=== PATIENT | male | born 1955 | race Caucasian/White ===

== ENCOUNTER 2022-12-26 08:30 | Outpatient (CLI) | payer MEDICARE, BC, SELFPAY | END 2022-12-26 08:31 | disposition home or self-care (01) | PROVIDERS: PCP Family Medicine; Visit Provider Family Medicine | DX: E55.9 Vitamin D deficiency, unspecified (principal); E78.5 Hyperlipidemia, unspecified; Z12.5 Encounter for screening for malignant neoplasm of prostate; Z83.3 Family history of diabetes mellitus | CPT/HCPCS: 80048; 80061; 84153 ==

== ENCOUNTER 2024-01-28 01:24 | Emergency (ER) | payer MEDICARE, OTHER, SELFPAY ==
[2024-01-28] VITALS (7 sets, daily range): BP systolic 135–147; BP diastolic 78–79; PULSE 77–93; RESP 16; TEMP 36.7; O2SAT 93–97; BMI 23.1
--- NOTE | 2024-01-28 01:29 | ED.GENADULT ---
HPI - General Adult General Time Seen by Provider: 01:29 Date Seen: 01/28/24 Chief complaint: Shortness of Breath/Dyspnea Stated complaint: Short of breath, syncopal 0030 Time Seen by Provider: 01/28/24 01:28 Source: patient, RN notes reviewed and old records reviewed Mode of arrival: ambulatory Limitations: no limitations History of Present Illness HPI narrative: 68-year-old male who presents today with shortness of breath and lightheadedness. Patient reports two episodes of becoming short of breath, and passing out. Once was when he was on the toilet, sent limp became very short of breath and lightheaded, diaphoretic, and passed out. No associated chest pain, palpitations. Was unable to get sleep due to some nausea and so wanted some water, again had an episode of feeling suddenly short of breath, lightheaded, diaphoretic, and passed out. He fell and hit his chin as well as the right-sided chest. Denies diarrhea, denies abdominal pain, still has little nausea now. Related Data Home Medications ?Medication ?Instructions ?Recorded ?Confirmed aspirin 81 mg tablet,delayed 81 mg PO QDAY 12/26/22 05/30/23 release (Adult Aspirin Regimen) Allergies Allergy/AdvReac Type Severity Reaction Status Date / Time No Known Drug Allergies Allergy Verified 05/30/23 13:44 PFSH PFS Surgical History History of vasectomy (~09/14/08) ?Z98.52 - Vasectomy status (ICD-10) Family History Other ASCVD (arteriosclerotic cardiovascular disease) Colon cancer Thoracic aortic aneurysm Social History What is your current living situation?: I presently have a place to live Problems where you live: no known problems In the past 12 months, utilities in danger of being shut off: no In the past 12 mos, have been you worried that your food would run out before you had money to buy more?: never true In the past 12 mos, the food you bought just didn't last and you didn't have money to buy more?: never true How often does anyone, including family, friends and others, physically hurt you: never How often does anyone, including family, friends and others, insult or talk down to you: never How often does anyone, including family, friends and others, threaten you with harm: never How often does anyone, including family, friends and others, scream or curse at you: sometimes Health Related Social Needs: Other personal risk factors, not elsewhere classified (Z91.89) Exam Narrative: Exam Narrative: General: Well-developed and well-nourished, no acute distress Head: Atraumatic and normocephalic Eyes: Pupils are equal reactive, extraocular motions intact, conjunctiva clear ENT: External nose and ears are normal, posterior pharynx without erythema or exudate. Superficial abrasion of the lower lip Neck: No midline cervical tenderness, full spontaneous range of motion the neck, trachea midline, no adenopathy Heart: Regular rate and rhythm no murmurs or thrills Lungs: Clear to auscultation bilaterally without wheezes or crackles. Contusion of the right chest. Abdomen: Soft, nontender, nondistended with active bowel sounds Musculoskeletal: No tenderness, deformity, or edema Neurologic: Awake, alert, and oriented x3, no gross focal neurologic deficits, cranial nerves intact as tested Psych: Mood and affect are appropriate Skin: No rashes Const: Vital Signs, click to edit/add: Vital Signs - 24 hr 01/28/24 01:39 Temperature 98.0 F Pulse Rate [Left P ulse Oximeter] 93 Respiratory Rate 16 Blood Pressure [Ri ght Upper Arm] 147/79 H Pulse Oximetry 97 Oxygen Delivery Me thod Room Air Course Course ED Course: Patient seen examined, reviewed most recent orthopedic office visit from June 2019 form patient was seen with osteoarthritis the left knee. Patient presents today with abrupt onset shortness of breath followed by lightheadedness and syncopal episode. Does have a small abrasion of the lower lip as well as contusion of the chest wall pain denies chest pain or palpitations prior to these events. On exam here, vital is stable. EKG is reassuring. Patient's related sequence of sudden shortness of breath, diaphoresis follow-up by syncopal episode is concerning for possible dysrhythmia, acute coronary syndrome, or pulmonary embolism. Labs and CT PE study ordered. Discussed with patient that even if workup is negative would likely recommend admission for further cardiac evaluation. EKG independently interpreted by me performed at 1:51 a.m. demonstrates normal sinus rhythm rate 86, no acute ST elevations or depressions, normal intervals, normal axis, QTC 437, AL 200, no prior for comparison. Reevaluation(s) Time of Reevaluation #1: 03:19 Reevaluation #1: CT scan of the head and panel interpreted by me negative for acute findings. Labs and panel interpreted by me with normal white blood cell count, normal hemoglobin, normal basic panel other than mild hyperglycemia, normal lactate, negative troponin, BNP 66, respiratory panel negative. CT PE study independently interpreted by in me without acute findings. No definite etiology for patient's symptoms found today. With abrupt onset of dyspnea and syncope, concern for possible acute cardiac etiology. Plan for admission. Time of Reevaluation #2: 03:45 Reevaluation #2: Patient recheck, discussed findings on evaluation so far including normal head CT, normal CT PE study, negative troponin, normal respiratory panel. Discussed recommendation for admission due to recurrent syncopal episodes with should preceding shortness of breath and no definite etiology. Discussed my concern for possible dysrhythmia, acute coronary syndrome, or other emergent condition. Patient would prefer to go home and have outpatient follow-up. Discussed risks of this inpatient again declines admission. Vital Signs Vital signs: Initial Vital Signs Temperature 98.0 F 01/28/24 01:39 Temperature Source Temporal Artery Scan 01/28/24 01:39 Pulse Rate 93 01/28/24 01:39 Pulse Rhythm Regular 01/28/24 01:39 Respiratory Rate 16 01/28/24 01:39 Blood Pressure 147/79 H 01/28/24 01:39 Blood Pressure Mean 101 01/28/24 01:39 Blood Pressure Position Sitting 01/28/24 01:39 Pulse Oximetry 97 01/28/24 01:39 Oxygen Delivery Method Room Air 01/28/24 01:39 Vital Signs Temperature 98.0 F 01/28/24 01:39 Pulse Rate 93 01/28/24 01:39 Respiratory Rate 16 01/28/24 01:39 Blood Pressure 147/79 H 01/28/24 01:39 Pulse Oximetry 97 01/28/24 01:39 Oxygen Delivery Method Room Air 01/28/24 01:39 Temperature 98.0 F 01/28/24 01:39 Pulse Rate 93 01/28/24 01:39 Respiratory Rate 16 01/28/24 01:39 Blood Pressure 147/79 H 01/28/24 01:39 Pulse Oximetry 97 01/28/24 01:39 Oxygen Delivery Method Room Air 01/28/24 01:39 Medical Decision Making Lab Data Labs: Lab Results 01/28/24 Range/Units 01:55 WBC 7.37 (4.50-11.00) K/uL RBC 5.02 (4.30-5.90) m/uL Hgb 14.6 (13.5-17.5) gm/dL Hct 43.7 (37.0-53.0) % MCV 87 (80-100) fL MCH 29 (26-34) pg MCHC 33 (32-36) gm/dL RDW Coeff of Ashleigh 12.4 (11.5-15.5) % Plt Count 222 (140-440) K/uL Neut % (Auto) 84.6 H (42.0-72.0) % Lymph % (Auto) 6.9 L (20-44) % Cooke % (Auto) 7.2 (0.0-11.0) % Eos % (Auto) 0.8 (0.0-7.0) % Baso % (Auto) 0.4 (0.0-3.0) % Neut # (Auto) 6.20 (1.7-7.0) K/uL Lymph # (Auto) 0.50 L (0.90-2.90) K/uL Cooke # (Auto) 0.50 (0.00-0.90) K/UL Eos # (Auto) 0.06 (0.00-0.50) K/uL Baso # (Auto) 0.03 (0.00-0.30) K/uL Abs Immat Gran (auto) 0.01 (0.00-0.30) K/uL Imm/Tot Granulo (auto) 0.1 % Sodium 135 (135-149) mmol/L Potassium 4.2 (3.6-5.1) mmol/L Chloride 101 (96-114) mmol/L Carbon Dioxide 27 (20-32) mmol/L Anion Gap 7 (7-15) mEq/L BUN 20 (7-30) mg/dL Creatinine 0.9 (0.5-1.5) mg/dL Estimated Creat Clear 76.04 Estimated GFR 92 ml/min Glucose 189 H (60-115) mg/dL Lactate 1.4 (0.5-1.9) mmol/L Calcium 9.4 (8.4-10.6) mg/dL Magnesium 2.2 (1.5-2.6) mg/dL Troponin I < 0.01 L (0.01-0.04) ng/mL NT-Pro-B Natriuret Pep 66 pg/mL SARS-CoV-2 (PCR) Negative SARS-CoV-2 (Negative) Influenza Type A (PCR) Negative PCR FLU A (Negative) Influenza Type B (PCR) Negative PCR FLU B (Negative) RSV (PCR) Negative PCR RSV (Negative) Discharge Plan Discharge Clinical Impression: Syncope, Abrasion of lip, Acute dyspnea Patient Disposition: Home, Self-Care Condition: Stable Instructions: Syncope (ED), Dyspnea (ED) Additional Instructions: Your emergency department provider recommended admission to the hospital which of declined. Follow-up with your primary care doctor as soon as possible for further evaluation. Please return to the emergency department any time if your symptoms return or get worse. Activity Level: Activity as Tolerated Discharge Diet: Regular Prescriptions: No Action aspirin [Adult Aspirin Regimen] 81 mg tablet,delayed release (DR/EC) 81 mg PO QDAY Follow Up/Referrals: Lino Blackmon MD [Primary Care Provider] - Stand Alone Forms: [email or web address] Info Instructions
--- NOTE | 2024-01-28 01:52 | CRLHL7_ITS ---
For Patients: As a result of the Century Cures Act, medical imaging exams and procedure reports are released immediately into your electronic medical record. You may view this report before your referring provider. If you have questions, please contact your health care provider. INDICATION: Dyspnea, syncope. TECHNIQUE: CT chest PE was acquired with 95 cc Isovue 370 IV contrast. COMPARISON: CT chest 03/05/2017. FINDINGS: Heart and vasculature: Contrast opacification of the pulmonary arterial tree is adequate. No sign of pulmonary embolism. Heart size is normal. Thoracic aorta and pulmonary artery are normal in caliber. Lungs and pleura: Dependent and bibasilar atelectasis. No suspicious nodules or infiltrates. No pleural effusions, pleural thickening, or pneumothorax. Lymph nodes/mediastinum: No mediastinal, hilar, or axillary adenopathy. Thyroid gland is unremarkable. Chest wall: No masses. Upper abdomen: No acute findings. Bones: Unremarkable for age. IMPRESSION: No evidence of pulmonary embolism or acute pulmonary process. Please note that all CT scans at this facility use dose modulation, iterative reconstruction, and/or weight-based dosing when appropriate to reduce radiation dose to as low as reasonably achievable. Dictated by Flaquito Abraham MD @ 01/28/2024 3:26:20 AM (Electronically Signed)
--- NOTE | 2024-01-28 01:52 | CRLHL7_ITS ---
For Patients: As a result of the Century Cures Act, medical imaging exams and procedure reports are released immediately into your electronic medical record. You may view this report before your referring provider. If you have questions, please contact your health care provider. INDICATION: Syncope, fall. TECHNIQUE: CT head without contrast. COMPARISON: None. FINDINGS: CSF spaces: Within normal limits for age. Brain parenchyma: The tuttle-white differentiation is maintained. No sign of mass, hemorrhage, or midline shift. Skull base and calvarium: The visualized paranasal sinuses and mastoid air cells demonstrate no acute or significant findings. The visualized orbits are grossly unremarkable. No skull fractures. IMPRESSION: No acute intracranial abnormality. Please note that all CT scans at this facility use dose modulation, iterative reconstruction, and/or weight-based dosing when appropriate to reduce radiation dose to as low as reasonably achievable. Dictated by Flaquito Abraham MD @ 01/28/2024 3:22:30 AM (Electronically Signed)
[2024-01-28 02:03] LABS: Lactate* 1.4 mmol/L (0.5-1.9)
[2024-01-28 02:04] LABS: Basophils Absolute Auto 0.03 K/uL (0.00-0.30); Basophils Percent Auto 0.4 % (0.0-3.0); Eosinophils Absolute Auto 0.06 K/uL (0.00-0.50); Eosinophils Percent Auto 0.8 % (0.0-7.0); Hematocrit 43.7 % (37.0-53.0); Hemoglobin* 14.6 gm/dL (13.5-17.5); Immature Granulocytes Abs Auto 0.01 K/uL (0.00-0.30); Immature Granulocytes Pct Auto 0.1 %; Lymphocytes Percent Auto 6.9 % (20-44); Mean Corpuscular HGB Conc 33 gm/dL (32-36); Mean Corpuscular Hemoglobin 29 pg (26-34); Mean Corpuscular Volume 87 fL (80-100); Monocytes Percent Auto 7.2 % (0.0-11.0); Neutrophils Percent Auto 84.6 % (42.0-72.0); Platelet Count* 222 K/uL (140-440); RDW Coefficient of Variation % 12.4 % (11.5-15.5); Red Blood Count 5.02 m/uL (4.30-5.90); White Blood Count* 7.37 K/uL (4.50-11.00)
[2024-01-28 02:07] LABS: Slide Review Reflex No
[2024-01-28 02:23] LABS: Chloride* 101 mmol/L (96-114); Potassium* 4.2 mmol/L (3.6-5.1); Sodium* 135 mmol/L (135-149)
[2024-01-28 02:26] LABS: Anion Gap 7 mEq/L (7-15); Blood Urea Nitrogen* 20 mg/dL (7-30); Calcium* 9.4 mg/dL (8.4-10.6); Carbon Dioxide* 27 mmol/L (20-32); Creatinine* 0.9 mg/dL (0.5-1.5); Est. Creatinine Clearance* 76.04; Estimated Glomerular Filt Rate 92 ml/min; Glucose* 189 mg/dL (60-115)
[2024-01-28 02:27] LABS: Magnesium* 2.2 mg/dL (1.5-2.6)
[2024-01-28 02:36] LABS: NT Pro B Type NatriureticPept* 66 pg/mL
[2024-01-28 02:40] LABS: PCR FLU A Negative PCR FLU A (Negative); PCR FLU B Negative PCR FLU B (Negative); PCR RSV Negative PCR RSV (Negative); SARS PCR* Negative SARS-CoV-2 (Negative)
[2024-01-28 02:43] LABS: Troponin I* < 0.01 ng/mL (0.01-0.04)
== END 2024-01-28 03:57 | disposition home or self-care (01) ==
PROVIDERS: Emergency Provider Family Medicine; PCP Family Medicine
DX: R55 Syncope and collapse (principal); S00.511A Abrasion of lip, initial encounter; R06.00 Dyspnea, unspecified; W18.39XA Other fall on same level, initial encounter
CPT/HCPCS: 36415; 70450; 71275; 80048; 83605; 83735; 83880; 84484; 85025; 87631; 93005; 99284; 99285; Q9967

== ENCOUNTER 2024-05-20 13:14 | Emergency (ER) | payer MEDICARE, OTHER, SELFPAY ==
--- OUTSIDE RECORDS SUMMARY | 2024-05-20 13:17 | XMS_ITS | Clinical Summary ---
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
--- OUTSIDE RECORDS SUMMARY | 2024-05-20 13:17 | XMS_ITS | Clinical Summary ---
Author Organization [facility] Address [address] [place] [id number] Care Team Providers Care Spray Worker Name Role Phone Sam Blackmon MD Primary Care Provider Kerwin Bonilla MD Unavailable Unava ilable Kerwin Bonilla MD Unavailable Unava ilable Allergies No known active allergies Medications aspirin (ASA) 81 MG chewable tablet 10/04/1999 Active Encounters Date Type Department Care Team Description 03/18/2024 7:16 AM SPACE ENGINEER - 03/18/2024 11:59 PM SPACE ENGINEER Hospital Encounter [facility] [address] [place] [phone] Kerwin Bonilla MD Syncope and collapse Discharge Disposition: Home or Self Care 03/18/2024 Travel from Last 3 Months Family History Medical History Relation Comments Aortic dissection Brother Myocardial Infarction Brother Aortic dissection Father Myocardial Infarction Father Aortic dissection Nephew Myocardial Infarction Nephew Relation Status Comments Brother Father Nephew Social History Tobacco Use Types Packs/Day Years Used Date Smoking Tobacco: Never Smokeless Tobacco: Never Tobacco Cessation:Counseling Given: Not Answered Alcohol Use Standard Drinks/Week Comments Yes 0 (1 standard drink = 0.6 oz pur e alcohol) Maybe once or twice a month PHQ-2 Answer Date Recorded PHQ-2 Score 0 02/05/2024 Sex and Gender Information Value Date Recorded Sex Assigned at Not on file Legal Sex Male 3:34 AM SPACE ENGINEER Gender Identity Not on file Sexual Orientation Not on file Last Filed Vital Signs Vital Sign Reading Time Taken Comments Blood Pressure 144/80 02/05/2024 9:10 AM SPACE ENGINEER Pulse 78 02/05/2024 9:10 AM SPACE ENGINEER Temperature 36.8 C (98.2 F) 01/28/2024 11:19 AM SPACE ENGINEER Respiratory Rate 20 01/28/2024 5:57 PM SPACE ENGINEER Oxygen Saturation 99% 02/05/2024 9:10 AM SPACE ENGINEER Inhaled Oxygen Concentration - - Weight 77.5 kg (170 lb 14.4 oz) 02/05/2024 9:10 AM SPACE ENGINEER Height 182.9 cm (6') 02/05/2024 9:10 AM SPACE ENGINEER Body Mass Index 23.18 02/05/2024 9:10 AM SPACE ENGINEER Plan of Treatment Health Maintenance Due Date Last Done Comments ADVANCE CARE PLANNING 1955 ANNUAL REVIEW OF HM ORDERS 1955 CT COLONOGRAPHY 1955 FIT 1955 FLEX SIG 1955 sDNA (Cologuard) 1955 COLONOSCOPY 02/23/1964 COLORECTAL CANCER SCREENING 02/23/1964 HEPATITIS C SCREENING 02/23/1972 LIPID 1994 ZOSTER IMMUNIZATION (1 of 2) 02/23/2004 FALL RISK ASSESSMENT 2019 MEDICARE ANNUAL WELLNESS VISIT 2019 Pneumococcal Vaccine: 50+ Years (2 of 2 - PCV) 04/02/2020 04/02/2019 COVID-19 Vaccine ( - season) 2023 03/17/2021, 06/29/2020, 06/08/2020 INFLUENZA VACCINE (#1) 2023 3, 04/02/2019, 01/03/2010, Additional history exists PHQ-2 (once per calendar year) 2024 02/05/2024 DIABETES SCREENING 01/27/2027 01/28/2024 RSV VACCINE (1 - 1-dose 75+ series) 2029 DTAP/TDAP/TD IMMUNIZATION (3 - Td or Tdap) 04/02/2029 04/02/2019, 10/27/2008 HPV IMMUNIZATION Aged Out No longer e ligible based on patient's age to complete this topic MENINGITIS IMMUNIZATION Aged Out No l onger eligible based on patient's age to complete this topic Procedures Procedure Name Priority Date/Time Associated Diagnosis Comments ECHO COMPLETE Routine 03/18/2024 7:51 AM SPACE ENGINEER Syncope and collapse BASIC METABOLIC PANEL STAT 01/28/2024 1:51 PM SPACE ENGINEER from Last 3 Months or Most Recently Relevant to Health Maintenance Results * ECHO COMPLETE (03/18/2024 7:51 AM SPACE ENGINEER) LVEF 55-60% CARDIOLOGY RESULTS Anatomical Region Laterality Modality Echocardiography 03/18/2024 7:24 AM SPACE ENGINEER Narrative 03/18/2024 8:34 AM SPACE ENGINEER [id number]^NEW^KERWIN^JAY [facility] Echocardiography Laboratory [address] [place] [address] Name: AMO JARRETT : 1955 Study Date: 03/18/2024 07:24 AM Age: 69 yrs Gender: Male Patient Location: [facility] Reason For Study: Syncope and collapse Ordering Physician: KERWIN BONILLA Referring Physician: KERWIN BONILLA Performed By: Zeb Garrison RDCS BSA: 2.0 m2 Height: 71 in Weight: 170 lb HR: 70 Procedure Echocardiogram with two-dimensional, color and spectral Doppler. Interpretation Summary Left ventricular systolic function is normal. The visual ejection fraction is 55-60%. No regional wall motion abnormalities noted. There is mild (1+) aortic regurgitation. There is mild (1+) mitral regurgitation. The study was technically adequate. There is no comparison study available. Left Ventricle The left ventricle is normal in size. There is normal left ventricular wall thickness. Left ventricular systolic function is normal. The visual ejection fraction is 55-60%. Left ventricular diastolic function is normal. No regional wall motion abnormalities noted. Right Ventricle The right ventricle is normal size. The right ventricular systolic function is normal. Atria Normal left atrial size. Right atrial size is normal. Mitral Valve The mitral valve leaflets are mildly thickened. There is mild (1+) mitral regurgitation. Tricuspid Valve There is trace to mild tricuspid regurgitation. The right ventricular systolic pressure is approximated at 15.6 mmHg plus the right atrial pressure. IVC diameter <2.1 cm collapsing >50% with sniff suggests a normal RA pressure of 3 mmHg. Aortic Valve There is mild trileaflet aortic sclerosis. There is mild (1+) aortic regurgitation. No aortic stenosis is present. Pulmonic Valve The pulmonic valve is not well seen, but is grossly normal. Vessels The aortic root is normal size. Pericardium There is no pericardial effusion. Rhythm Sinus rhythm was noted. MMode/2D Measurements & Calculations IVSd: 0.99 cm LVIDd: 5.0 cm LVIDs: 2.6 cm LVPWd: 0.91 cm IVC diam: 2.1 cm FS: 49.2 % LV mass(C)d: 172.0 grams LV mass(C)dI: 87.4 grams/m2 Ao root diam: 3.6 cm asc Aorta Diam: 3.9 cm LVOT diam: 2.3 cm LVOT area: 4.2 cm2 Ao root diam index Ht(cm/m): 2.0 Ao root diam index BSA (cm/m2): 1.8 Asc Ao diam index BSA (cm/m2): 2.0 Asc Ao diam index Ht(cm/m): 2.1 LA Volume (BP): 47.0 ml LA Volume Index (BP): 23.9 ml/m2 RWT: 0.36 TAPSE: 2.8 cm Time Measurements Aortic HR: 68.0 BPM Doppler Measurements & Calculations MV E max iker: 51.3 cm/sec MV A max iker: 53.8 cm/sec MV E/A: 0.95 MV max P.1 mmHg MV mean P.1 mmHg MV V2 VTI: 17.4 cm MVA(VTI): 4.0 cm2 MV dec time: 0.23 sec LV V1 max P.9 mmHg LV V1 max: 85.4 cm/sec LV V1 VTI: 16.8 cm CO(LVOT): 4.8 l/min CI(LVOT): 2.4 l/min/m2 SV(LVOT): 70.0 ml SI(LVOT): 35.5 ml/m2 PA acc time: 0.13 sec TR max iker: 197.3 cm/sec TR max P.6 mmHg E/E' av.2 Lateral E/e': 4.9 Medial E/e': 5.5 RV S Iker: 12.6 cm/sec Report approved by: Jono Elizabeth MD on 03/18/2024 08:34 AM Procedure Note Jono Elizabeth MD - 03/18/2024 [id number]^NEW^KERWIN^JAY [facility] Echocardiography Laboratory [address] [facility] [place] [address] Name: MAO JARRETT : 1955 Study Date: 03/18/2024 07:24 AM Age: 69 yrs Gender: Male Patient Location: [facility] Reason For Study: Syncope and collapse Ordering Physician: KERWIN BONILLA Referring Physician: KERWIN BONILLA Performed By: Zeb Garrison RDCS BSA: 2.0 m2 Height: 71 in Weight: 170 lb HR: 70 Procedure Echocardiogram with two-dimensional, color and spectral Doppler. Interpretation Summary Left ventricular systolic function is normal. The visual ejection fraction is 55-60%. No regional wall motion abnormalities noted. There is mild (1+) aortic regurgitation. There is mild (1+) mitral regurgitation. The study was technically adequate. There is no comparison studyavailable. Left Ventricle The left ventricle is normal in size. There is normal left ventricularwall thickness. Left ventricular systolic function is normal. The visualejection fraction is 55-60%. Left ventricular diastolic function is normal. Noregional wall motion abnormalities noted. Right Ventricle The right ventricle is normal size. The right ventricular systolicfunction is normal. Atria Normal left atrial size. Right atrial size is normal. Mitral Valve The mitral valve leaflets are mildly thickened. There is mild (1+)mitral regurgitation. Tricuspid Valve There is trace to mild tricuspid regurgitation. The right ventricularsystolic pressure is approximated at 15.6 mmHg plus the right atrial pressure.IVC diameter <2.1 cm collapsing >50% with sniff suggests a normal RA pressureof 3 mmHg. Aortic Valve There is mild trileaflet aortic sclerosis. There is mild (1+) aortic regurgitation. No aortic stenosis is present. Pulmonic Valve The pulmonic valve is not well seen, but is grossly normal. Vessels The aortic root is normal size. Pericardium There is no pericardial effusion. Rhythm Sinus rhythm was noted. MMode/2D Measurements & Calculations IVSd: 0.99 cm LVIDd: 5.0 cm LVIDs: 2.6 cm LVPWd: 0.91 cm IVC diam: 2.1 cm FS: 49.2 % LV mass(C)d: 172.0 grams LV mass(C)dI: 87.4 grams/m2 Ao root diam: 3.6 cm asc Aorta Diam: 3.9 cm LVOT diam: 2.3 cm LVOT area: 4.2 cm2 Ao root diam index Ht(cm/m): 2.0 Ao root diam index BSA (cm/m2): 1.8 Asc Ao diam index BSA (cm/m2): 2.0 Asc Ao diam index Ht(cm/m): 2.1 LA Volume (BP): 47.0 ml LA Volume Index (BP): 23.9 ml/m2 RWT: 0.36 TAPSE: 2.8 cm Time Measurements Aortic HR: 68.0 BPM Doppler Measurements & Calculations MV E max iker: 51.3 cm/sec MV A max iker: 53.8 cm/sec MV E/A: 0.95 MV max P.1 mmHg MV mean P.1 mmHg MV V2 VTI: 17.4 cm MVA(VTI): 4.0 cm2 MV dec time: 0.23 sec LV V1 max P.9 mmHg LV V1 max: 85.4 cm/sec LV V1 VTI: 16.8 cm CO(LVOT): 4.8 l/min CI(LVOT): 2.4 l/min/m2 SV(LVOT): 70.0 ml SI(LVOT): 35.5 ml/m2 PA acc time: 0.13 sec TR max iker: 197.3 cm/sec TR max P.6 mmHg E/E' av.2 Lateral E/e': 4.9 Medial E/e': 5.5 RV S Iker: 12.6 cm/sec Report approved by: Jono Elizabeth MD on 03/18/2024 08:34 AM Kerwin Bonilla MD CV ECHO ORDERABLES Issac lawson Result - Final * Basic metabolic panel (01/28/2024 1:51 PM SPACE ENGINEER) Sodium 138 135 - 145 mmol/L 01/28/2024 2:19 PM [facility] Potassium 4.2 3.4 - 5.3 mmol/L 01/28/2024 2:19 PM [facility] Chloride 100 98 - 107 mmol/L 01/28/2024 2:19 PM [facility] Carbon Dioxide (CO2) 25 22 - 29 mmol/L 01/28/2024 2:19 PM [facility] Anion Gap 13 7 - 15 mmol/L 01/28/2024 2:19 PM [facility] Urea Nitrogen 17.1 8.0 - 23.0 mg/dL 01/28/2024 2:19 PM [facility] Creatinine 1.01 0.67 - 1.17 mg/dL 01/28/2024 2:19 PM [facility] GFR Estimate 81 >60 mL/min/1.7 3m2 01/28/2024 2:19 PM SPACE ENGINEER [facility] Comment:eGFR calculated 2020 CKD-EPI equation. Calcium 9.4 8.8 - 10.4 mg/dL 01/28/2024 2:19 PM SPACE ENGINEER [facility] Comment:Reference intervals for this test were updated on 09/11/2023 to reflect our healthy population more accurately. There may be differences in the flagging of prior results with similar values performed with this method. Those prior results can be interpreted in the context of the updated reference intervals. Glucose 98 70 - 99 mg/dL 01/28/2024 2:19 PM SPACE ENGINEER [facility] Blood STRUCTURE OF RIGHT UPPER LIMB / Unknown Venipuncture / Unknown 01/28/2024 1:51 PM SPACE ENGINEER 01/28/2024 1:57 PM SPACE ENGINEER us Femi Perez MD LAB - BLOOD ORDERABLES Final Result [facility] Lab [address] [facility] Lab (1st floor, no room number) [place] [address] from Last 3 Months or Most Recently Relevant to Health Maintenance Insurance [employer] MEDICARE MEDICA PRIME SOLUTION MEDICARE Care Teams Spray Worker Relationship Specialty Start Date End Date Sam Blackmon MD [address] [address] PCP - General Family Medicine 01/28/24 Kerwin Bonilla MD [address] [address] Cardiovascular Disease 01/29/24 Kerwin Bonilla MD Assigned Heart and Vascular Provider 02/18/24
[2024-05-20 13:22] VITALS: BP 142/76; PULSE 80; RESP 18; TEMP 37.3; O2SAT 97; BMI 24.8
[2024-05-20 13:40] VITALS: PULSE 75; RESP 18; O2SAT 91
[2024-05-20 13:41] VITALS: BP 152/93; PULSE 73; RESP 18; O2SAT 94
[2024-05-20 13:45] VITALS: PULSE 71; O2SAT 96
[2024-05-20 14:01] VITALS: BP 142/87; RESP 18
--- OUTSIDE RECORDS SUMMARY | 2024-05-20 14:13 | XMS_ITS | Clinical Summary ---
Author Organization [facility] Address [address] [place] [address] Care Team Providers Care Interpreter Name Role Phone Sam Blackmon MD Primary Care Provider [phone] Kerwin Bonilla MD Unavailable Unava ilable Kerwin Bonilla MD Unavailable Unava ilable Allergies No known active allergies Medications aspirin (ASA) 81 MG chewable tablet 10/04/1999 Active Encounters Date Type Department Care Team Description 03/18/2024 7:16 AM CLINICAL PROGRAM CONSULTANT - 03/18/2024 11:59 PM CLINICAL PROGRAM CONSULTANT Hospital Encounter [facility] [address] [place] [phone] Kerwin Bonilla MD Syncope and collapse Discharge [...] on file Legal Sex Male 3:34 AM CLINICAL PROGRAM CONSULTANT Gender Identity Not on file Sexual Orientation Not on file Last Filed Vital Signs Vital Sign Reading Time Taken Comments Blood Pressure 144/80 02/05/2024 9:10 AM CLINICAL PROGRAM CONSULTANT Pulse 78 02/05/2024 9:10 AM CLINICAL PROGRAM CONSULTANT Temperature 36.8 C (98.2 F) 01/28/2024 11:19 AM CLINICAL PROGRAM CONSULTANT Respiratory Rate 20 01/28/2024 5:57 PM CLINICAL PROGRAM CONSULTANT Oxygen Saturation 99% 02/05/2024 9:10 AM CLINICAL PROGRAM CONSULTANT Inhaled Oxygen Concentration - - Weight 77.5 kg (170 lb 14.4 oz) 02/05/2024 9:10 AM CLINICAL PROGRAM CONSULTANT Height 182.9 cm (6') 02/05/2024 9:10 AM CLINICAL PROGRAM CONSULTANT Body Mass Index 23.18 02/05/2024 9:10 AM CLINICAL PROGRAM CONSULTANT Plan of Treatment Health Maintenance Due Date [...] Comments ECHO COMPLETE Routine 03/18/2024 7:51 AM CLINICAL PROGRAM CONSULTANT Syncope and collapse BASIC METABOLIC PANEL STAT 01/28/2024 1:51 PM CLINICAL PROGRAM CONSULTANT from Last 3 Months or Most Recently Relevant to Health Maintenance Results * ECHO COMPLETE (03/18/2024 7:51 AM CLINICAL PROGRAM CONSULTANT) LVEF 55-60% CARDIOLOGY RESULTS Anatomical Region Laterality Modality Echocardiography 03/18/2024 7:24 AM CLINICAL PROGRAM CONSULTANT Narrative 03/18/2024 8:34 AM CLINICAL PROGRAM CONSULTANT [id number]^NEW^KERWIN^JAY [facility] Echocardi[facility] Laboratory [address] [place] [address] Name: MAO JARRETT : 1955 Study Date: 03/18/2024 07:24 AM Age: 69 yrs Gender: Male Patient Location: [facility] Reason For Study: Syncope and collapse Ordering [...] Procedure Note Jono Elizabeth MD - 03/18/2024 [id number]^NEW^KERWIN^JAY [facility] Echocardiography Laboratory [address] [facility] [place] [address] Name: MAO JARRETT : 1955 Study Date: 03/18/2024 07:24 AM Age: 69 yrs Gender: Male Patient Location: [facility] Reason For Study: Syncope and collapse Ordering [...] * Basic metabolic panel (01/28/2024 1:51 PM CLINICAL PROGRAM CONSULTANT) Sodium 138 135 - 145 mmol/L 01/28/2024 2:19 PM [facility] Potassium 4.2 3.4 - 5.3 mmol/L 01/28/2024 2:19 PM [facility] Chloride 100 98 - 107 mmol/L 01/28/2024 2:19 PM [facility] Carbon Dioxide (CO2) 25 22 - 29 mmol/L 01/28/2024 2:19 PM [facility] Anion Gap 13 7 - 15 mmol/L 01/28/2024 2:19 PM [facility] Urea Nitrogen 17.1 8.0 - 23.0 mg/dL 01/28/2024 2:19 PM [facility] Creatinine 1.01 0.67 - 1.17 mg/dL 01/28/2024 2:19 PM [facility] GFR Estimate 81 >60 mL/min/1.7 3m2 01/28/2024 2:19 PM CLINICAL PROGRAM CONSULTANT [facility] Comment:eGFR calculated 2020 CKD-EPI equation. Calcium 9.4 8.8 - 10.4 mg/dL 01/28/2024 2:19 PM CLINICAL PROGRAM CONSULTANT [facility] Comment:Reference intervals for this test were updated on 09/11/2023 to reflect our healthy population more accurately. There may be differences in the flagging of prior results with similar values performed with this method. Those prior results can be interpreted in the context of the updated reference intervals. Glucose 98 70 - 99 mg/dL 01/28/2024 2:19 PM CLINICAL PROGRAM CONSULTANT [facility] Blood STRUCTURE OF RIGHT UPPER LIMB / Unknown Venipuncture / Unknown 01/28/2024 1:51 PM CLINICAL PROGRAM CONSULTANT 01/28/2024 1:57 PM CLINICAL PROGRAM CONSULTANT us Femi Perez MD LAB - BLOOD ORDERABLES Final Result [facility] Acute Care Lab [address] [facility] Lab (1st floor, no room number) [place] [address] from Last 3 Months or Most Recently Relevant to Health Maintenance Insurance [employer] MEDICARE MEDICA PRIME SOLUTION MEDICARE Care Teams Interpreter Relationship Specialty Start Date End Date Sam Blackmon MD [address] [address] PCP - General Family Medicine 01/28/24 Kerwin Bonilla MD [address] [address] Cardiovascular Disease 01/29/24 Kerwin Bonilla MD Assigned Heart and Vascular Provider 02/18/24
--- OUTSIDE RECORDS SUMMARY | 2024-05-20 14:13 | XMS_ITS | Clinical Summary ---
Author Organization [facility] Address [address] [place] [address] Care Team Providers Care Is/It Project Manager Name Role Phone Lino Blackmon MD Primary Care Provider Social History Tobacco Use Types Packs/Day Years Used Date Smoking Tobacco: Never Assessed Sex and Gender Information Value Date Recorded Sex Assigned at Not on file Legal Sex Male 5:27 AM BIOMETRICS EXPERIMENTALIST Gender Identity Not on file Sexual Orientation Not on file Plan of Treatment Not on file Insurance [employer]ICKOLAS [address] [facility] [id number] Care Teams Is/It Project Manager Relationship Specialty Start Date End Date Lino Blackmon MD PCP - General Family Practice 05/07/13
--- NOTE | 2024-05-20 14:46 | ED_ITS ---
HPI - Head Injury General Date Seen: 05/20/24 Chief complaint: Head Injury/Pain Stated complaint: head laceration/fall Time Seen by Provider: 05/20/24 13:22 Source: patient Mode of arrival: ambulatory Limitations: no limitations History of Present Illness HPI Narrative: Patient is a 6-year-old male presenting to the emergency department after a fall. He states he was getting out of the forklift which is about 18 in in the air when he tripped and fell landing onto the gravel hitting his head. States he thinks he blacked out for 1 or 2 seconds. Has had blurry vision since then. This occurred shortly prior to arrival. Denies headache. Is not on any blood thinners other than 81 mg daily aspirin. Denies nausea, vomiting, tinnitus, weakness, numbness, chest pain, shortness of breath. His is with him and she states he is otherwise acting normally. Denies any other injuries. No other concerns noted. Related Data Home Medications ?Medication ?Instructions ?Recorded ?Confirmed aspirin 81 mg tablet,delayed 81 mg PO QDAY 12/26/22 05/20/24 release (Adult Aspirin Regimen) Allergies Allergy/AdvReac Type Severity Reaction Status Date / Time No Known Drug Allergies Allergy Verified 05/20/24 13:28 Review of Systems Status of ROS: Reports: 10 or more systems reviewed and unremarkable except as noted in History and below [employer] [facility] Surgical History History of vasectomy (~09/14/08) ?Z98.52 - Vasectomy status (ICD-10) Family History Other ASCVD (arteriosclerotic cardiovascular disease) Colon cancer Thoracic aortic aneurysm Social History What is your current living situation?: I presently have a place to live Problems where you live: no known problems In the past 12 months, utilities in danger of being shut off: no In past 12 months, lack of transportation kept you from medical appts, meetings, work, or getting things needed for daily living: no In the past 12 mos, have been you worried that your food would run out before you had money to buy more?: never true In the past 12 mos, the food you bought just didn't last and you didn't have money to buy more?: never true Smoking Status: Never smoker How often do you have a drink containing alcohol: monthly or less AUDIT-C Alcohol total score: 1 Non-prescribed substance use: marijuana (any form) Non-prescribed substance use details: CBD How often does anyone, including family, friends and others, physically hurt you : never How often does anyone, including family, friends and others, insult or talk down to you: never How often does anyone, including family, friends and others, threaten you with harm: never How often does anyone, including family, friends and others, scream or curse at you: sometimes service: No Health Related Social Needs: Other personal risk factors, not elsewhere classified (Z91.89) Exam Narrative: Exam Narrative: Airway: Airway patent, Breathing: Good bilateral air movement, no signs of tracheal deviation normal appearing chest wall movement, oxygenating appropriately Circulation: No signs of obvious hemorrhage, pulses +2 bilaterally in all extremities Disability: GCS 15 Constitutional: Pt is oriented to person, place, and time. Pt appears well- developed and well-nourished. HENT: Head: No palpable skull fractures with a small 1 cm laceration to the posterior aspect Mouth/Throat: Oropharynx is clear and moist. No hematomas or lacerations or abrasions to face or scalp OP clear, no blood, no malocclusion, dentition intact Nares clear, no nasal septal hematoma TMs clear, no hemotympanum Midface stable Eyes: Conjunctivae and EOM are normal. Pupils are equal, round, and reactive to light. Neck: C-spine midline nontender, no step-offs Cardiovascular: Normal rate, regular rhythm and normal heart sounds. Pulmonary/Chest: Effort normal and breath sounds normal. No respiratory distress. He has no wheezes. CTA bilaterally Abdominal: Soft. Bowel sounds are normal. Pt exhibits no distension. There is no tenderness. Musculoskeletal: No bony tenderness to extremities, no deformities, full ROM extremities, Chest wall stable, Pelvis stable and non-tender, No vertebral TTP and spine without stepoffs Neurological: Pt is alert and oriented to person, place, and time. Cranial nerves 2-12 grossly intact, normal [id number], normal [id number], normal gait, normal strength 5/5 upper lower extremities bilaterally, normal sensation upper and lower extremities bilaterally, normal rapid alternating movements. Skin: Skin is warm and dry. No abrasions, no lacerations Psychiatric: Behavior is appropriate for situation Const: Vital Signs, click to edit/add: Vital Signs - 24 hr 05/20/24 13:22 05/20/24 13:40 05/20/24 13:41 Temperature 99.2 F Pulse Rate 75 73 Pulse Rate [Pulse Oximeter] 80 Respiratory Rate 18 18 Blood Pressure 152/93 H Blood Pressure [Ri ght Upper Arm] 142/76 H Pulse Oximetry 97 91 94 Oxygen Delivery Me thod Room Air 05/20/24 13:41 05/20/24 13:45 05/20/24 14:01 Temperature Pulse Rate 73 71 Pulse Rate [Pulse Oximeter] Respiratory Rate 18 18 Blood Pressure 152/93 H 142/87 H Blood Pressure [Ri ght Upper Arm] Pulse Oximetry 94 96 Oxygen Delivery Me thod Course Vital Signs Vital signs: Initial Vital Signs Temperature 99.2 F 05/20/24 13:22 Temperature Source Temporal Artery Scan 05/20/24 13:22 Pulse Rate 80 05/20/24 13:22 Respiratory Rate 18 05/20/24 13:22 Blood Pressure 142/76 H 05/20/24 13:22 Blood Pressure Mean 98 05/20/24 13:22 Blood Pressure Position Sitting 05/20/24 13:22 Pulse Oximetry 97 05/20/24 13:22 Oxygen Delivery Method Room Air 05/20/24 13:22 Vital Signs Temperature 99.2 F 05/20/24 13:22 Pulse Rate 80 05/20/24 13:22 Respiratory Rate 18 05/20/24 13:22 Blood Pressure 142/76 H 05/20/24 13:22 Pulse Oximetry 97 05/20/24 13:22 Oxygen Delivery Method Room Air 05/20/24 13:22 Temperature 99.2 F 05/20/24 13:22 Pulse Rate 71 05/20/24 13:45 Respiratory Rate 18 05/20/24 14:01 Blood Pressure 142/87 H 05/20/24 14:01 Pulse Oximetry 96 05/20/24 13:45 Oxygen Delivery Method Room Air 05/20/24 13:22 MDM - Head Injury MDM Narrative Medical decision making narrative: Patient is a 69-year-old male presenting to the emergency department after a fall. Due to loss of consciousness a CTA was called. Exam was reassuring. He does have blurry vision and I will do a CT scan head and cervical spine. No other injuries noted on exam other than the laceration on the back of his head. Neuro exam was unremarkable. Last tetanus shot was 04/02/2019. The wound looks relatively clean and his tetanus does not need to be updated. Patient's blurry vision improve as quickly after I left the room. He now stating he is asymptomatic. CT scans reviewed by myself the radiologist showed no acute abnormalities. He is feeling well at this time. I spoke to him about using russ versus glue to close of his laceration. I explained russ will hold it better but with clue he will not need to return for removal. He would prefer glue at this time. Considering the size I do believe this is reasonable. Patient will be discharged. They are agreeable to this plan. Imaging Data CT scan head: Attestation: I have reviewed the pertinent imaging results. Radiologist's impression: 1. No acute intracranial abnormalities. Please note that all CT scans at this facility use dose modulation, iterative reconstruction, and/or weight-based dosing when appropriate to reduce radiation dose to as low as reasonably achievable. Dictated by Lalo Leblanc MD @ 05/20/2024 2:26:[address] scan cervical spine: Attestation: I have reviewed the pertinent imaging results. Radiologist's impression: 1. No acute fracture or traumatic malalignment of the cervical spine. Please note that all CT scans at this facility use dose modulation, iterative reconstruction, and/or weight-based dosing when appropriate to reduce radiation dose to as low as reasonably achievable. Dictated by Lalo Leblanc MD @ 05/20/2024 2:24:05 PM Discharge Plan Discharge Clinical Impression: Closed head injury Qualifiers: Encounter type: initial encounter Qualified Code(s): S09.90XA - Unspecified injury of head, initial encounter Laceration of scalp Qualifiers: Encounter type: initial encounter Qualified Code(s): S01.01XA - Laceration without foreign body of scalp, initial encounter Patient Disposition: Home, Self-Care Condition: Stable Instructions: Head Injury (DC), Skin Adhesive Care (ED) Additional Instructions: The skin glue should fall out on its own in the next 7 days. Do not use topical antibiotics as he will cause the glue to dissolve faster. Try not to rub the area or pick at the glue. For next 6 months, once sutures are removed, whenever you go outside put a dab of sunscreen over the laceration site to improve scar appearance. If you have persistent headaches follow-up with your primary care provider. Prescriptions: No Action aspirin [Adult Aspirin Regimen] 81 mg tablet,delayed release (DR/EC) 81 mg PO QDAY Follow Up/Referrals: Lino Blackmon MD [Primary Care Provider] - Stand Alone Forms: [facility] Info Instructions Procedures Laceration Scalp: Name of person performing procedure: Jerel Shine Site: scalp Size (cm): 1 Description: linear and clean Depth: simple, single layer Skin layer closed with: other (Dermabond)
== END 2024-05-20 15:11 | disposition home or self-care (01) ==
PROVIDERS: Emergency Provider Student in an Organized Health Care Education/Training Program; PCP Family Medicine
DX: S01.01XA Laceration without foreign body of scalp, initial encounter (principal); W01.10XA Fall on same level from slipping, tripping and stumbling with subsequent striking against unspecified object, initial encounter
CPT/HCPCS: 12001; 70450; 72125; 99284; 99291

== ENCOUNTER 2024-11-22 17:31 | Emergency (ER) | payer MEDICARE, OTHER, SELFPAY ==
--- OUTSIDE RECORDS SUMMARY | 2004-05-18 19:00 | XMS_ITS | Continuity of Care Document ---
Author Organization [facility] Address [address] [address] [place] [address] Phone Care Team Providers Care Director Of Rehabilitation Name Role Phone Joseph Jacobo MD Unavailable Unavailable Advance Directives Directive Yes / No Effective Date File Name No Information Encounters Encounter Description Practice Location Reason(s) For Visit Diagnoses Date Provider Providers Copied on Encounter [facility], [address] [address], [place], [place], [id number], [place] tel:[phone] No Information Donnell Ruiz. [address] [address], [place], [place], [id number], [place]. tel:[phone] Family History Family Member Type Diagnosis Age At Onset No Information Payers Payer name Insurance type Covered democrat ID Authoriza tion(s) No Information Social History Type Description Quantity Date Captured Comments Sex Male Smoking Status No Information Chief Complaint And Reason For Visit No Information Reason For Referral Reason For Referral No Information History Of Present Illness Encounter Date Complaint History Of Prese nt Illness No Information Functional Status Date Functional Assessmen t No Information Instructions Date Instruction Additional Infor mation No Information Assessments Type Assessment Date No Information Patient Care Teams Name Effective Dates (start - stop) Status Members No Information
--- OUTSIDE RECORDS SUMMARY | 2004-05-18 19:00 | XMS_ITS | Continuity of Care Document ---
Author Organization [facility] Address [address] [address] [place] [address] Phone Care Team Providers Care Liberal Arts Teacher Name Role Phone Joseph Jacobo MD Unavailable Unavailable Advance Directives Directive Yes / No Effective Date File Name No Information Encounters Encounter Description Practice Location Reason(s) For Visit Diagnoses Date Provider Providers Copied on Encounter [facility], [address] [address], [place], [place], [id number], [place] tel:[phone] No Information Donnell Ruiz. [address] [address], [place], [place], [id number], [place]. tel:[phone] Family History Family Member Type Diagnosis Age At Onset No Information Payers Payer name Insurance type Covered alliance party ID Authoriza tion(s) No Information Social History [...]
--- OUTSIDE RECORDS SUMMARY | 2024-11-22 17:32 | XMS_ITS | Clinical Summary ---
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
--- OUTSIDE RECORDS SUMMARY | 2024-11-22 17:32 | XMS_ITS | Clinical Summary ---
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 Gender Identity Not on file Sexual Orientation Not on file Last Filed Vital Signs Vital Sign Reading Time Taken Comments Blood Pressure 144/80 02/05/2024 9:10 AM INSURANCE BILLING SPECIALIST Pulse 78 02/05/2024 9:10 AM INSURANCE BILLING SPECIALIST Temperature 36.8 C (98.2 F) 01/28/2024 11:19 AM INSURANCE BILLING SPECIALIST Respiratory Rate 20 01/28/2024 5:57 PM INSURANCE BILLING SPECIALIST Oxygen Saturation 99% 02/05/2024 9:10 AM INSURANCE BILLING SPECIALIST Inhaled Oxygen Concentration - - Weight 77.5 kg (170 lb 14.4 oz) 02/05/2024 9:10 AM INSURANCE BILLING SPECIALIST Height 182.9 cm (6') 02/05/2024 9:10 AM INSURANCE BILLING SPECIALIST Body Mass Index 23.18 02/05/2024 9:10 AM INSURANCE BILLING SPECIALIST Plan of Treatment Health Maintenance Due Date Last Done Comments ADVANCE CARE PLANNING 1955 ANNUAL REVIEW OF HM ORDERS 1954 CT COLONOGRAPHY 1954 FIT 1954 FLEX SIG 1954 sDNA (Cologuard) 1954 COLONOSCOPY 02/23/1964 COLORECTAL CANCER SCREENING 02/23/1964 HEPATITIS C SCREENING 02/23/1972 LIPID 1994 ZOSTER VACCINE (1 of 2) 02/23/2004 FALL RISK ASSESSMENT 2019 MEDICARE ANNUAL WELLNESS VISIT 2019 PNEUMOCOCCAL VACCINE 50+ YEARS (2 of 2 - PCV) 04/02/2020 04/02/2019 PHQ-2 (once per calendar year) 2024 02/05/2024 COVID-19 VACCINE ( - season) 2024 03/17/2021, 06/29/2020, 06/08/2020 INFLUENZA VACCINE (#1) 2024 3, 04/02/2019, 01/03/2010, Additional history exists DIABETES SCREENING 01/27/2027 01/28/2024 RSV VACCINE (1 - 1-dose 75+ series) 2029 DTAP/TDAP/TD VACCINE (3 - Td or Tdap) 04/02/2029 04/02/2019, 10/27/2008 HPV VACCINE (No Doses Required) Completed MENINGITIS VACCINE Aged Out No longer eligible based on patient's age to complete this topic Procedures Procedure Name Priority Date/Time Associated Diagnosis Comments BASIC METABOLIC PANEL STAT 01/28/2024 1:51 PM INSURANCE BILLING SPECIALIST from Last 3 Months or Most Recently Relevant to Health Maintenance Results * Basic metabolic panel (01/28/2024 1:51 PM INSURANCE BILLING SPECIALIST) Sodium 138 135 - 145 mmol/L 01/28/2024 2:19 PM INSURANCE BILLING SPECIALIST [facility] Potassium 4.2 3.4 - 5.3 mmol/L 01/28/2024 2:19 PM INSURANCE BILLING SPECIALIST [facility] Chloride 100 98 - 107 mmol/L 01/28/2024 2:19 PM INSURANCE BILLING SPECIALIST [facility] Carbon Dioxide (CO2) 25 22 - 29 mmol/L 01/28/2024 2:19 PM INSURANCE BILLING SPECIALIST [facility] Anion Gap 13 7 - 15 mmol/L 01/28/2024 2:19 PM INSURANCE BILLING SPECIALIST [facility] Urea Nitrogen 17.1 8.0 - 23.0 mg/dL 01/28/2024 2:19 PM [facility] Creatinine 1.01 0.67 - 1.17 mg/dL 01/28/2024 2:19 PM INSURANCE BILLING SPECIALIST [facility] GFR Estimate 81 >60 mL/min/1.7 3m2 01/28/2024 2:19 PM INSURANCE BILLING SPECIALIST [facility] Comment:eGFR calculated usin 2020 CKD-EPI equation. Calcium 9.4 8.8 - 10.4 mg/dL 01/28/2024 2:19 PM INSURANCE BILLING SPECIALIST [facility] Comment:Reference intervals for this test were updated on 09/11/2023 to reflect our healthy population more accurately. There may be differences in the flagging of prior results with similar values performed with this method. Those prior results can be interpreted in the context of the updated reference intervals. Glucose 98 70 - 99 mg/dL 01/28/2024 2:19 PM [facility] Blood STRUCTURE OF RIGHT UPPER LIMB / Unknown Venipuncture / Unknown 01/28/2024 1:51 PM INSURANCE BILLING SPECIALIST 01/28/2024 1:57 PM INSURANCE BILLING SPECIALIST us Femi Perez MD LAB - BLOOD ORDERABLES Final Result LABORATORY [facility] [address] Lab (1st floor, no room number) [place] [address], [facility] from Last 3 Months or Most Recently Relevant to Health Maintenance Insurance [employer] MEDICARE Member Subscriber Plan / Payer ( fective 2019-) Name:Mao Jarrett Member ID:[id number] Relation to Subscriber:Self Name:Mao Jarrett Subscriber ID:[id number] Payer ID:[id number] Group ID:Not on file Type:Medicare Address: ATTN CLAIMS [id number] [employer] [place] [id number] MEDICARE Care Teams Powder Operator Relationship Specialty Start Date End Date Sam Blackmon MD [facility] [address], [place] [address] PCP - General Family Medicine 01/28/24 Kerwin Bonilla MD [facility] [address] [place] [id number] Cardiovascular Disease 01/29/24 Kerwin Bonilla MD Assigned Heart and Vascular Provider 02/18/24
[2024-11-22 17:46] VITALS: BP 146/112; PULSE 70; RESP 18; TEMP 36.8; O2SAT 97; BMI 23.7
--- NOTE | 2024-11-22 17:55 | ED.ABDPAIN ---
HPI - Abdominal Pain General Time Seen by Provider: 17:55 Date Seen: 11/22/24 Chief Complaint: Abdominal Pain Stated Complaint: Abdominal pain Time Seen by Provider: 11/22/24 17:39 Source: patient, RN notes reviewed and old records reviewed Mode of arrival: ambulatory Limitations: no limitations History of Present Illness HPI narrative: 69-year-old male who presents today with abdominal pain. Patient notes left lower quadrant abdominal pain starting little bit last night and continuing today. Pain in left lower quadrant gets worse when he urinates although he does not have any dysuria. Nausea with no vomiting, no diarrhea, no hematuria, no fever chills. Has been taking Tylenol for this. Related Data Home Medications ?Medication ?Instructions ?Recorded ?Confirmed aspirin 81 mg tablet,delayed 81 mg PO QDAY 12/26/22 11/22/24 release (Adult Aspirin Regimen) Allergies Allergy/AdvReac Type Severity Reaction Status Date / Time No Known Drug Allergies Allergy Verified 11/22/24 17:46 PFSH PFSH Surgical History History of vasectomy (~09/14/08) ?Z98.52 - Vasectomy status (ICD-10) Family History Other ASCVD (arteriosclerotic cardiovascular disease) Colon cancer Thoracic aortic aneurysm Social History What is your current living situation?: I presently have a place to live Problems where you live: no known problems In the past 12 months, utilities in danger of being shut off: no In past 12 months, lack of transportation kept you from medical appts, meetings, work, or getting things needed for daily living: no In the past 12 mos, have been you worried that your food would run out before you had money to buy more?: never true In the past 12 mos, the food you bought just didn't last and you didn't have money to buy more?: never true Smoking Status: Never smoker How often do you have a drink containing alcohol: monthly or less AUDIT-C Alcohol total score: 1 Non-prescribed substance use: marijuana (any form) Non-prescribed substance use details: CBD How often does anyone, including family, friends and others, physically hurt you: never How often does anyone, including family, friends and others, insult or talk down to you: never How often does anyone, including family, friends and others, threaten you with harm: never How often does anyone, including family, friends and others, scream or curse at you: sometimes service: No Health Related Social Needs: Other personal risk factors, not elsewhere classified (Z91.89) Exam Narrative: Exam Narrative: General: Well-developed and well-nourished, no acute distress Head: Atraumatic and normocephalic Eyes: Pupils are equal reactive, extraocular motions intact, conjunctiva clear ENT: External nose and ears are normal, posterior pharynx without erythema or exudate Neck: No midline cervical tenderness, full spontaneous range of motion the neck, trachea midline, no adenopathy Heart: Regular rate and rhythm no murmurs or thrills Lungs: Clear to auscultation bilaterally without wheezes or crackles Abdomen: Soft, nontender, nondistended with active bowel sounds Musculoskeletal: No tenderness, deformity, or edema Neurologic: Awake, alert, and oriented x3, no gross focal neurologic deficits, cranial nerves intact as tested Psych: Mood and affect are appropriate Skin: No rashes Const: Vital Signs, click to edit/add: Vital Signs - 24 hr 11/22/24 17:46 Temperature 98.2 F Pulse Rate [Pulse Oximeter] 70 Respiratory Rate 18 Blood Pressure [Ri ght Upper Arm] 146/112 H Pulse Oximetry 97 Oxygen Delivery Me thod Room Air Course Course ED Course: Reviewed prior urgent care visit from May 2024 which was for knee pain related to osteoarthritis of the knee. Patient presents today with left lower quadrant normal pain since last night. On exam here, he is finally stable. No tenderness. Does note the pain gets worse with some movements. He does have nausea but no vomiting and notes that when he urinates the left lower quadrant pain gets worse. Consider diverticulitis, colitis, ureteral stone. Musculoskeletal source possible less likely. Labs and CT scan are ordered. Reevaluation(s) Time of Reevaluation #1: 18:49 Reevaluation #1: Labs independently interpreted by me with microscopic hematuria but no other insert infection, a normal basic panel, normal white blood cell count, mild anemia. CT abdomen and pelvis independently interpreted by me without acute findings. Time of Reevaluation #2: 19:11 Reevaluation #2: Reviewed radiology interpretation of CT scan which agrees with my initial interpretation with no acute findings, there is moderate to large amount of stool throughout the colon. Patient is stable for discharge with return precautions given. Vital Signs Vital signs: Initial Vital Signs Temperature 98.2 F 11/22/24 17:46 Temperature Source Temporal Artery Scan 11/22/24 17:46 Pulse Rate 70 11/22/24 17:46 Respiratory Rate 18 11/22/24 17:46 Blood Pressure 146/112 H 11/22/24 17:46 Blood Pressure Mean 123 H 11/22/24 17:46 Blood Pressure Position Semi-Fowlers 11/22/24 17:46 Pulse Oximetry 97 11/22/24 17:46 Oxygen Delivery Method Room Air 11/22/24 17:46 Vital Signs Temperature 98.2 F 11/22/24 17:46 Pulse Rate 70 11/22/24 17:46 Respiratory Rate 18 11/22/24 17:46 Blood Pressure 146/112 H 11/22/24 17:46 Pulse Oximetry 97 11/22/24 17:46 Oxygen Delivery Method Room Air 11/22/24 17:46 Temperature 98.2 F 11/22/24 17:46 Pulse Rate 70 11/22/24 17:46 Respiratory Rate 18 11/22/24 17:46 Blood Pressure 146/112 H 11/22/24 17:46 Pulse Oximetry 97 11/22/24 17:46 Oxygen Delivery Method Room Air 11/22/24 17:46 MDM - Abdominal Pain Lab Data Labs: Lab Results 11/22/24 11/22/24 Range/Units 17:53 18:13 WBC 5.57 (4.50-11.00) K/uL RBC 4.23 L (4.30-5.90) m/uL Hgb 12.6 L (13.5-17.5) gm/dL Hct 36.9 L (37.0-53.0) % MCV 87 (80-100) fL MCH 30 (26-34) pg MCHC 34 (32-36) gm/dL RDW Coeff of Ashleigh 12.6 (11.5-15.5) % Plt Count 200 (140-440) K/uL Neut % (Auto) 81.1 H (42.0-72.0) % Lymph % (Auto) 10.1 L (20-44) % [place] % (Auto) 7.7 (0.0-11.0) % Eos % (Auto) 0.5 (0.0-7.0) % Baso % (Auto) 0.4 (0.0-3.0) % Neut # (Auto) 4.50 (1.7-7.0) K/uL Lymph # (Auto) 0.60 L (0.90-2.90) K/uL [place] # (Auto) 0.40 (0.00-0.90) K/UL Eos # (Auto) 0.03 (0.00-0.50) K/uL Baso # (Auto) 0.02 (0.00-0.30) K/uL Abs Immat Gran (auto) 0.01 (0.00-0.30) K/uL Imm/Tot Granulo (auto) 0.2 % Sodium 134 L (135-149) mmol/L Potassium 3.9 (3.6-5.1) mmol/L Chloride 101 (96-114) mmol/L Carbon Dioxide 27 (20-32) mmol/L Anion Gap 6 L (7-15) mEq/L BUN 17 (7-30) mg/dL Creatinine 0.8 (0.5-1.5) mg/dL Estimated Creat Clear 73.21 Estimated GFR 95 ml/min Glucose 146 H (60-115) mg/dL Calcium 8.5 (8.4-10.6) mg/dL Urine Color Yellow (Yellow) Urine Appearance Clear (Clear) Urine pH 7.0 (5.0-8.5) Ur Specific [place] 1.020 (1.000-1.030) Urine Protein Negative (Negative) Urine Glucose (UA) Negative (Negative) Urine Ketones Negative (Negative) Urine Blood Trace-intact A (Negative) Urine Nitrite Negative (Negative) Urine Bilirubin Negative (Negative) Urine Urobilinogen 0.2 (0.2-1.0) Ur Leukocyte Esterase Negative (Negative) Urine RBC 2-5 A (0-2) Urine WBC 0-2 (0-5) Ur Squamous Epith Cells None (None-Few) Amorphous Sediment Few A (None) Urine Bacteria None (None) Discharge Plan Discharge Clinical Impression: Abdominal pain, LLQ Patient Disposition: Home, Self-Care Condition: Stable Instructions: Acute Abdominal Pain (DC) Additional Instructions: Tylenol and ibuprofen as needed for pain Start MiraLax for constipation Follow-up with your primary care doctor this week Activity Level: No Restrictions Discharge Diet: Regular Prescriptions: No Action aspirin [Adult Aspirin Regimen] 81 mg tablet,delayed release (DR/EC) 81 mg PO QDAY Follow Up/Referrals: Lino Blackmon MD [Primary Care Provider, Family Practice] Stand Alone Forms: [employer] Info Instructions
[2024-11-22 18:00] LABS: Appearance Urine Clear (Clear)
--- NOTE | 2024-11-22 18:06 | CRLHL7_ITS ---
For Patients: As a result of the Century Cures Act, medical imaging exams and procedure reports are released immediately into your electronic medical record. You may view this report before your referring provider. If you have questions, please contact your health care provider. Indication: Left lower quadrant pain, hematuria Technique: Volumetric multidetector CT images of the abdomen and pelvis were without the administration of intravenous contrast. Comparison: None available. Findings: There is minimal basilar atelectasis and parenchymal scar. The liver is normal in attenuation without intrahepatic biliary ductal dilatation. The gallbladder is unremarkable without evidence of radiopaque calculus. There is no significant common biliary ductal dilatation or abrupt cut off. The spleen is normal in attenuation and size. The stomach and duodenum are grossly unremarkable. The pancreas is normal in attenuation without significant atrophy. The adrenal glands are unremarkable. There is no evidence of radiopaque calculus or hydronephrosis. Moderate to severe stool is seen throughout the colon with minimal distal colonic diverticulosis. The appendix is unremarkable. There is no significant mesenteric, retroperitoneal, or pelvic sidewall lymph nodes. The aorta is nonaneurysmal. There is no significant atherosclerotic disease appreciated. The solid pelvic viscera are grossly unremarkable. There is no free fluid or free air. The anterior abdominal wall is intact without significant hernias. The lumbar vertebral body heights are grossly maintained with moderate endplate subchondral cystic changes and Schmorl`s defects. There is moderate facet arthrosis. Impression: 1. No evidence of hydronephrosis or obstructive uropathy. 2. Moderate to severe stool seen throughout the colon with minimal distal colonic diverticulosis without obvious diverticulitis. 3. Otherwise, no definite acute intra-abdominal abnormalities are appreciated. Please note that all CT scans at this facility use dose modulation, iterative reconstruction, and/or weight-based dosing when appropriate to reduce radiation dose to as low as reasonably achievable. Dictated by Hilton Seymour MD @ 11/22/2024 7:09:13 PM (Electronically Signed)
[2024-11-22 18:32] LABS: Hematocrit* 36.9 % (37.0-53.0); Hemoglobin* 12.6 gm/dL (13.5-17.5); Immature Granulocytes Abs Auto 0.01 K/uL (0.00-0.30); Immature Granulocytes Pct Auto 0.2 %; Mean Corpuscular HGB Conc 34 gm/dL (32-36); Mean Corpuscular Hemoglobin 30 pg (26-34); Mean Corpuscular Volume 87 fL (80-100); RDW Coefficient of Variation % 12.6 % (11.5-15.5); Red Blood Count* 4.23 m/uL (4.30-5.90); White Blood Count* 5.57 K/uL (4.50-11.00)
[2024-11-22 18:36] LABS: Lymphocytes Absolute Auto 0.60 K/uL (0.90-2.90); Slide Review Reflex No
[2024-11-22 18:41] LABS: Chloride* 101 mmol/L (96-114); Sodium* 134 mmol/L (135-149)
[2024-11-22 18:42] LABS: Potassium* 3.9 mmol/L (3.6-5.1)
[2024-11-22 18:44] LABS: Anion Gap 6 mEq/L (7-15); Blood Urea Nitrogen* 17 mg/dL (7-30); Carbon Dioxide* 27 mmol/L (20-32); Creatinine* 0.8 mg/dL (0.5-1.5); Est. Creatinine Clearance* 73.21; Estimated Glomerular Filt Rate 95 ml/min
[2024-11-22 18:45] LABS: Calcium* 8.5 mg/dL (8.4-10.6); Glucose* 146 mg/dL (60-115)
== END 2024-11-22 19:26 | disposition home or self-care (01) ==
PROVIDERS: Emergency Provider Family Medicine; PCP Family Medicine
DX: R10.32 Left lower quadrant pain (principal)
CPT/HCPCS: 36415; 74176; 80048; 81001; 85025; 99284